=== PATIENT | female | born 1980 | race Caucasian/White ===

== ENCOUNTER 2019-12-14 12:59 | Emergency (ER) | payer OTHER ==
[~2019-12-14] VITALS: Ht 182.9 cm; Wt 100.0 kg
[2019-12-14] MEDS ORDERED: GUAI600T50 PO (13:06)
[2019-12-14] MEDS ORDERED: BIRTH CONTROL PILL PO (13:06)
[2019-12-14 15:40] VITALS: BP 127/48
== END 2019-12-14 15:45 | disposition home or self-care (01) ==
LOC: EMS 13:07
DX: R05 Cough (principal); R03.0 Elevated blood-pressure reading, without diagnosis of hypertension; Z20.828 Contact with and (suspected) exposure to other viral communicable diseases; Z90.89 Acquired absence of other organs
CPT/HCPCS: 71045; 99284; U0003

== ENCOUNTER 2021-12-17 07:26 | Emergency (ER) | payer OTHER ==
[~2021-12-17] VITALS: Ht 185.4 cm; Wt 100.0 kg
[~2021-12-17 07:26] MED LIST: BIRTH CONTROL PILL PO; GUAI600T50 PO
[2021-12-17 09:45] VITALS: BP 128/49
[2021-12-17] MEDS ORDERED: AMOX500C2 PO (11:29)
[2021-12-17] MEDS ORDERED: DEXAMETHASONE SOD PHOS 4 MG/ML 5 ML VIAL IM ONE ×2 (11:30→12:00)
== END 2021-12-17 12:26 | disposition home or self-care (01) ==
LOC: EMS 07:26
DX: J03.90 Acute tonsillitis, unspecified (principal); Z79.899 Other long term (current) drug therapy
CPT/HCPCS: 99283; 87430; 96372; J1100